=== PATIENT | male | born 1955 | race Caucasian/White ===

== ENCOUNTER 2016-08-16 15:47 | Emergency (ER) | payer OTHER ==
[~2016-08-16] VITALS: Ht 185.4 cm; Wt 91.6 kg
[2016-08-16 16:01] VITALS: BP 147/85
[2016-08-16] MEDS ORDERED: DEXTROAMPHETAMI10 M3 PO (16:24)
[2016-08-16] MEDS ORDERED: LISINOPRIL-HCT1 EAC1 PO (16:24)
[2016-08-16] MEDS ORDERED: NEXIUM40 M1 (16:25)
[2016-08-16] MEDS ORDERED: VIAGRA50 MG PO (16:26)
[2016-08-16] MEDS ORDERED: LUMIGAN2.5 ML OPH (16:26)
[2016-08-16] MEDS ORDERED: ADVIL200 M1 PO (16:27)
[2016-08-16] MEDS ORDERED: MULTI-DAY VITA1 EACH PO (16:27)
--- NOTE | 2016-08-16 16:32 | ED UPPER/LOWER EXTREMITY COMPL ---
History of Present Illness General Chief Complaint: Laceration Procedure Stated Complaint: LAC TO RIGHT KNEE Source: patient, old records Exam Limitations: no limitations Vital Signs & Intake/Output Vital Signs & Intake/Output Vital Signs Date Time Temp Pulse Resp B/P Pulse O2 O2 Flow FiO2 Ox Delivery Rate 08/16 1601 97.7 98 18 147/85 97 Room Air Allergies Coded Allergies: No Known Allergies (08/16/16) Reconcile Medications Bimatoprost (Lumigan) 0.01 % DROPS 1 GTT OPH QPM RIGHT EYE (Reported) Dextroamphetamine Sulfate 10 MG TABLET 1 TAB PO TID-4XDAILY ADHD (Reported) Esomeprazole (Nexium) (Unknown Strength) CAPSULE.DR (Unknown Dose) UNKNOWN ( Reported) Ibuprofen (Advil) 200 MG CAPSULE 2 CAP PO PRN PAIN (Reported) Lisinopril/Hydrochlorothiazide (Lisinopril-Hctz 20-25 MG Tab) 20 MG-25 MG TABLET 1 TAB PO DAILY BP (Reported) Multivitamin (Multi-Day Vitamins) 1 EACH TABLET 1 TAB PO DAILY SUPPLEMENT ( Reported) Sildenafil Citrate (Viagra) 50 MG TABLET 1 TAB PO AD PRN ED (Reported) 1 hour before sexual activity Triage Note: RECEIVED 60 YO MALE C/O LACERATION TO LEFT KNEE. 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 UNABLE TO VISUALIZE IN TRIAGE Triage Nurses Notes Reviewed? yes Onset: Abrupt Duration: hour(s): (1), constant Timing: recent history Severity: mild Severity Numbers: 3 Pain/Injury Location: Left: Knee. Method of Injury: laceration No Modifying Factors: none Associated Symptoms: none HPI: 60-year-old male presents emergency room for evaluation status post sustaining laceration to his left knee just prior to arrival. He now presents with mild-to -moderate aching pain over the knee at the site of the laceration when he cut himself accidentally with hedge clippers. He denies any difficulty with movement of his knee numbness or tingling. He denies any difficulty with weightbearing. There is no other injury. His last tetanus is unknown. Past History Travel History Traveled to [place] past 21 day No Medical History Any Pertinent Medical History? see below for history Neurological: NONE EENT: NONE Cardiovascular: hypertension Respiratory: NONE Gastrointestinal: NONE Hepatic: NONE Renal: NONE Musculoskeletal: NONE Psychiatric: NONE Endocrine: NONE Blood Disorders: NONE Cancer(s): NONE Surgical History Surgical History: none Psychosocial History What is your primary language Kiswahili Tobacco Use: Quit >30 days ago Family History Hx Contributory? No Review of Systems Review of Systems Constitutional: Reports: see HPI. All Other Systems: Reviewed and Negative Comments Review of systems: See HPI, All other systems negative. Constitutional, no chills no fever, no malaise HEENT: No visual changes no sore throat no congestion Cardiovascular: No chest pain , no palpitation Skin, no jaundice no rashes, no change in skin Respiratory: no cough no sputum GI: No nausea no vomiting, no diarrhea, : No dysuria Muscle skeletal: No joint pain, no joint swelling, no back pain, no neck pain, Neurologic: no headache Psych: No stress Heme/endocrine: No bruising no bleeding Immunology: No lymphadenopathy Physical Exam Physical Exam General Appearance: well developed/nourished, no apparent distress Comments: Well-developed well-nourished patient in no apparent distress. HEENT: Atraumatic, extraocular motion intact Neck: Supple, FROM Back: FROM Respiratory: No respiratory distress. Patient speaking in full complete sentences. Breath sounds clear to auscultation bilaterally: NO W/R/R Upper Extremities: full range of motion Hip/Pelvis: Atraumatic/Stable. FROM. Knee: 2 cm superficial linear laceration over the anterior left knee, there is no deep tendon involvement the patient is able to straight leg raise and flex the knee without any pain or difficulty stable. FROM. No joint swelling, no effusion. No laxity. Negative lolita/anterior drawer test. No pain with ROM Leg: Atraumatic. Nontender. No edema, 5 out of 5 strength in the lower extremity, normal dorsiflexion of great toe bilaterally, gross sensation is intact, patellar tendon reflex 2+ bilaterally. Ankle/Foot: Atraumatic/stable. Skin intact. FROM. Pulses: Normal/equal DP/PT pulses bilaterally. Brisk cap refill Neuro: Alert and oriented x3 Skin: Warm & dry;No appreciable rash on exposed skin Psych: Mood affect normal, normal memory normal judgment. Progress Differential Diagnosis: cellulitis, contusion, dislocation, fracture, sprain, tendon injury Plan of Care: The wound was thoroughly irrigated with normal saline Betadine peroxide. Sutures 5 placed by PA student under my direct supervision patient tolerated procedure well. Discussed the patient and his possibly foreign body not seen on examination the tendon injury exist, to return immediately with any concerns. I answered all her questions they feel comfortable with plan cleared for discharge. tetanus im given Departure Departure Time of Disposition: 1706 Disposition: HOME OR SELF CARE Condition: Stable Clinical Impression Primary Impression: Knee laceration Referrals: JONO ERAZO MD (PCP/Family) Additional Instructions: Keep area clean and covered as discussed, bacitracin daily. Return to ER in 7- 10 days for suture removal. The possibility of a retained foreign body not seen during examination today or deep tendon injury exists. Return to ER anytime sooner with any concerns or signs of infection: Redness, warmth, swelling discharge fever or chills. Departure Forms: Customer Survey General Discharge Information Procedures Laceration/Wound Repair Laceration/Wound Repair: Wound Location: lower extremity (left) Wound's Depth, Shape: linear, superficial Wound Length (cm): 2 Wound Explored: clean, irrigated extensively Irrigated w/ Saline (ccs): 250 Betadine Prep? Yes Anesthesia: 1% lidocaine Volume Anesthetic (ccs): 6 Wound Repaired With: sutures Suture Size/Type: 3:0 Number of Sutures: 5 Layer Closure? No Sterile Dressing Applied: Yes Date of Last Tetanus: 08/16/16 Tetanus Status: not up to date
== END 2016-08-16 17:25 ==
LOC: ERH 15:47
DX: S81.012A Laceration without foreign body, left knee, initial encounter (principal); W27.8XXA Contact with other nonpowered hand tool, initial encounter; Y93.H2 Activity, gardening and landscaping; Y92.9 Unspecified place or not applicable